=== PATIENT | male | born 2000 | race Caucasian/White ===

== ENCOUNTER 2023-05-26 13:34 | Emergency (ER) | payer OTHER ==
[~2023-05-26] VITALS: Ht 172.7 cm; Wt 72.0 kg
[2023-05-26 13:35] VITALS: TEMP 98
[2023-05-26] MEDS ORDERED: BACT800T5 PO (16:59)
[2023-05-26] MEDS ORDERED: BACTRIM 160MG/800MG DS TAB PO ONE (17:05)
[2023-05-26 17:13] VITALS: BP 134/82; O2SAT 99
== END 2023-05-26 17:16 | disposition home or self-care (01) ==
LOC: M ED 13:34
DX: L05.91 Pilonidal cyst without abscess (principal); Z79.2 Long term (current) use of antibiotics